=== PATIENT | female | born 1980 | race Caucasian/White ===

== ENCOUNTER 2018-08-26 10:51 | Emergency (ER) | payer BC, OTHER ==
[2018-08-26 10:53] VITALS: BMI 30.2
[2018-08-26 11:05] VITALS: BP 131/88; PULSE 66; RESP 18; TEMP 98.4; O2SAT 97
--- NOTE | 2018-08-26 11:29 | ED PDOC ---
Arrival/HPI - General Chief Complaint: Finger,Hand,&Wrist Historian: Patient - History of Present Illness Narrative History of Present Illness (Text): 08/26/18 11:21 38 y/o female, pmh including dermatitis, nkda, c/o lt. hand pain x 1 day with no fall or trauma. Pt. stated that she has left hand small lump about 1-2 weeks ago, started to have pain today with the lump, no numbness or tingling, no difficulty moving the left hand, no night sweat, no rash, no palpitation, no dizziness, no change in vision, no other medical or psychological complaints Past Medical History - Provider Review Nursing Documentation Reviewed: Yes - Infectious Disease Hx of Infectious Diseases: None - Reproductive Currently : No - Cardiac Hx Pacemaker: No - Pulmonary Hx Respiratory Disorders: No - Neurological Hx Paralysis: No - HEENT Hx HEENT Disorder: No - Renal Hx Renal Disorder: No - Endocrine/Metabolic Hx Endocrine Disorders: No - Hematological/Oncological Hx Blood Transfusions: No - Integumentary Hx Dermatological Disorder: No - Musculoskeletal/Rheumatological Hx Musculoskeletal Disorders: Yes (R.A) Hx Arthritis: Yes (Rheumatoid arthritis) - Gastrointestinal Hx Gastrointestinal Disorders: No - Genitourinary/Gynecological Hx Genitourinary Disorders: No - Psychiatric Hx Emotional Abuse: No Hx Physical Abuse: No Hx Substance Use: No - Surgical History Hx Cholecystectomy: Yes - Anesthesia Hx Anesthesia: Yes Hx Anesthesia Reactions: No Hx Malignant Hyperthermia: No - Suicidal Assessment Feels Threatened In Home Enviroment: No Family/Social History - Physician Review Nursing Documentation Reviewed: Yes Family/Social History: Unknown Family HX Smoking Status: Never Smoked Hx Alcohol Use: No Hx Substance Use: No Allergies/Home Meds Allergies/Adverse Reactions: Allergies shrimp Allergy (Severe, Verified 12/19/15 06:53) RASH Home Medications: Home Meds Medication Instructions Recorded Confirmed Etanercept [Enbrel] 50 mg INJ .WEEKLY 12/06/15 12/19/15 Naltrexone HCl/Bupropion HCl 1 tab PO DAILY 12/14/15 12/14/15 [Contrave ER 8-90 mg Tablet] traMADol [Ultram] 50 mg PO PRN 12/19/15 Review of Systems - Review of Systems Constitutional: absent: Fatigue, Fevers Eyes: absent: Vision Changes ENT: absent: Hearing Changes Respiratory: absent: SOB, Cough Cardiovascular: absent: Chest Pain Gastrointestinal: absent: Abdominal Pain, Diarrhea, Nausea, Vomiting Musculoskeletal: Arthralgias. absent: Back Pain, Neck Pain, Joint Swelling, Myalgias Skin: absent: Rash, Pruritis, Skin Lesions Psychiatric: absent: Anxiety, Depression, Suicidal Ideation Physical Exam Vital Signs Reviewed: Yes Vital Signs Temp Pulse Resp BP Pulse Ox 08/26/18 10:53 98.4 F 66 18 131/88 97 Temperature: Afebrile Blood Pressure: Normal Pulse: Regular Respiratory Rate: Normal Appearance: Positive for: Well-Appearing, Non-Toxic, Comfortable Pain Distress: Mild Mental Status: Positive for: Alert and Oriented X 3 - Systems Exam Head: Present: Atraumatic, Normocephalic Pupils: Present: PERRL Extroacular Muscles: Present: EOMI Conjunctiva: Present: Normal Mouth: Present: Moist Mucous Membranes Neck: Present: Normal Range of Motion Respiratory/Chest: Present: Clear to Auscultation, Good Air Exchange. No: Respiratory Distress, Accessory Muscle Use Cardiovascular: Present: Regular Rate and Rhythm, Normal S1, S2. No: Murmurs Abdomen: No: Tenderness, Distention, Peritoneal Signs Back: Present: Normal Inspection Upper Extremity: Present: Normal Inspection, Other (Lt. hand: visible approx. 2cm diameter mobile cyst noted on the dorsum aspect of the 3-4th metacarpal region with no cellulitis/ulcers/fluctuant abscess, no scaphoid tenderness, FROM without limitation,senation intact, motor 5/5, +radial pulse, capillary refill< 2 seconds, neurovascular intact. ). No: Cyanosis, Edema Lower Extremity: Present: Normal Inspection. No: Edema Neurological: Present: GCS=15, CN II-XII Intact, Speech Normal Skin: Present: Warm, Dry, Normal Color. No: Rashes Psychiatric: Present: Alert, Oriented x 3, Normal Insight, Normal Concentration Medical Decision Making ED Course and Treatment: 08/26/18 11:33 -Urine hcg is negative -Pt. has lt. hand ganglion cyst, causing her pain, will aspirated it but she understands she needs hand surgeon follow up, prophylatically with keflex due to the incision. 08/26/18 11:56 Procedure: Incision & Drainage Performed by the emergency provider Indication: cyst Location: Lt. hand dorsum Preparation: The area was prepped and draped in the usual sterile fashion and was cleansed with normal saline 1000cc, clean with betadine. Local infiltration of Lidocaine 1% 0.5cc was used for anesthesia. Procedure: The most fluctuant portion of the abscess was incised with inserted with 18g needle with sonogram guided, aspirated approx. 2cc of clear gelatin like fluid with the swelling immediately resolved and pain resolved as well, gauze and bacitracin pressure dressing, Post-Procedure: On exam the cyst swelling is resolved. The patient tolerated the procedure well, and there were no complications. -After I&D with sonogram guided, she feels completely relief, will discharge home. -Discharge home with keflex, motrin, graham wrap, lt. hand rest, follow up with your own pmd and hand surgeon within 2 days, return to the ER for any new or worsening signs or symptoms. 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 Disposition/Present on Arrival - Present on Arrival Any Indicators Present on Arrival: Yes History of DVT/PE: No History of Uncontrolled Diabetes: No Urinary Catheter: No History of Decub. Ulcer: No History Surgical Site Infection Following: None - Disposition Have Diagnosis and Disposition been Completed?: Yes Diagnosis: Ganglion cyst Disposition: HOME/ ROUTINE Disposition Time: 11:58 Patient Plan: Discharge Patient Problems: Current Active Problems Problem Status Onset Ganglion cyst Acute Condition: IMPROVED Additional Instructions: -Discharge home with keflex, motrin, graham wrap, lt. hand rest, follow up with your own pmd and hand surgeon within 2 days, return to the ER for any new or worsening signs or symptoms. Prescriptions: Cephalexin [Keflex] 500 mg PO TID #21 capsule Ibuprofen [Motrin] 600 mg PO QID PRN #20 tab PRN Reason: Other Referrals: FAMILY PROVIDER,NO [Primary Care Provider] - Follow up with primary Fermín Branch MD [Staff Provider] - Follow up with primary Forms: [employer] ([place]ian), WORK NOTE
[2018-08-26] MEDS ORDERED: Lidocaine 1% 5ml Abboject ONE (11:47)
[2018-08-26] MEDS ORDERED: Vancomycin 1 g Inj ONE (14:32)
== END 2018-08-26 12:23 | disposition home or self-care (01) ==
LOC: ED 10:51
DX: M67.442 Ganglion, left hand (principal); M06.9 Rheumatoid arthritis, unspecified

== ENCOUNTER 2018-09-09 10:29 | Outpatient (CLI) | payer BC | END 2018-09-09 10:30 | disposition home or self-care (01) | LOC: LAB 10:29 | DX: Z13.29 Encounter for screening for other suspected endocrine disorder (principal); Z13.220 Encounter for screening for lipoid disorders; E55.9 Vitamin D deficiency, unspecified; D64.9 Anemia, unspecified ==

== ENCOUNTER 2018-09-14 09:40 | Outpatient (CLI) | payer BC | END 2018-09-14 09:41 | disposition home or self-care (01) | LOC: RAD 09:40 | DX: Z12.31 Encounter for screening mammogram for malignant neoplasm of breast (principal) ==